=== PATIENT | female | born 1995 | race Caucasian/White ===

== ENCOUNTER 2021-03-19 12:48 | Day surgery (SDC) | payer OTHER | END 2021-03-19 13:55 | disposition home or self-care (01) | LOC: CSHSDC 12:48 | PROVIDERS: ATTEND Obstetrics & Gynecology | DX: Z29.13 Encounter for prophylactic Rho(D) immune globulin (principal); Z3A.33 33 weeks gestation of pregnancy; Z67.11 Type A blood, Rh negative | CPT/HCPCS: 86900; 86901; 90384; 96372 ==

== ENCOUNTER 2021-10-04 08:19 | Emergency (ER) | payer OTHER ==
[2021-10-04] MEDS ORDERED: Ondansetron ODT 4 MG TAB ONE (08:55)
[2021-10-04] MEDS ORDERED: Lidocaine 1% PF 5 ML VIAL ONE (09:10)
[2021-10-04] MEDS ORDERED: cefTRIAXone\\ROCEPHIN 1 GM VIAL ONE ×2 (09:10→09:19)
== END 2021-10-04 09:39 | disposition home or self-care (01) ==
LOC: CSHERS 08:19
DX: N61.0 Mastitis without abscess (principal)
CPT/HCPCS: 96372; 99283; J0696; Q0162

== ENCOUNTER 2023-01-18 17:02 | Emergency (ER) | payer OTHER | END 2023-01-18 21:40 | disposition home or self-care (01) | LOC: CSHERS 17:02 | DX: S13.4XXA Sprain of ligaments of cervical spine, initial encounter (principal); S63.91XA Sprain of unspecified part of right wrist and hand, initial encounter; V89.2XXA Person injured in unspecified motor-vehicle accident, traffic, initial encounter ==